=== PATIENT | female | born 1950 | race Caucasian/White ===

== ENCOUNTER 2018-09-22 20:38 | Emergency (ER) | payer MEDICARE, OTHER ==
[~2018-09-22] VITALS: Ht 154.9 cm; Wt 79.0 kg
[~2018-09-22 20:38] MED LIST: AMLO10TA80; BENA40TA66; CARB200T; COR3; HYDR25TA; SIMV20TA2
[2018-09-22] MEDS ORDERED: LIDOCAINE HCL/PF 1% 10 MG/ML 5ML VIAL IJ ONE (23:15)
[2018-09-22] MEDS ORDERED: TETANUS, DIPHTHERIA, PERTUSSIS VAC/PF 0.5ML (>7YR OLD) IM ONE (23:15)
[2018-09-22] MEDS ORDERED: BACITRACIN ZINC OINT UDPKT TOP ONE (23:15)
[2018-09-23 00:30] VITALS: BP 152/68
== END 2018-09-23 00:34 | disposition home or self-care (01) ==
LOC: ER 22:41
DX: S01.81XA Laceration without foreign body of other part of head, initial encounter (principal); Y04.8XXA Assault by other bodily force, initial encounter; Y93.89 Activity, other specified; Y92.410 Unspecified street and highway as the place of occurrence of the external cause; I10 Essential (primary) hypertension
CPT/HCPCS: 12011; 70450; 70486; 90471; 99284; J3490; 90715